=== PATIENT | female | born 1995 | race Caucasian/White ===

== ENCOUNTER 2021-04-17 10:06 | Day surgery (SDC) | payer OTHER, SELFPAY ==
[~2021-04-17] VITALS: Ht 157.5 cm; Wt 43.5 kg
[2021-04-17] MEDS ORDERED: BUPIVACAINE-MPF 0.25% 30 ML VIAL INJ ONE (11:17)
[2021-04-17] MEDS ORDERED: KETOROLAC 30 MG/ML VIAL ONE (13:00)
[2021-04-17] MEDS ORDERED: DEXAMETHASONE 4 MG/ML VIAL ONE (13:00)
[2021-04-17] MEDS ORDERED: PROPOFOL 200 MG/20 ML VIAL IV ONE (13:00)
[2021-04-17] MEDS ORDERED: MIDAZOLAM 2 MG/2 ML VIAL ONE (13:00)
[2021-04-17] MEDS ORDERED: SEVOFLURANE 250 ML BTL INH ONE (13:00)
[2021-04-17] MEDS ORDERED: fentaNYL citrate 0.05 MG/ML VIAL ONE (13:00)
[2021-04-17] MEDS ORDERED: HYDROmorphone 1 MG/ML AMP IVP PRN ×2 (13:25→18:00)
[2021-04-17] MEDS ORDERED: ONDANSETRON 4 MG/2 ML VIAL IVP PRN (13:25)
[2021-04-17] MEDS ORDERED: LACTATED RINGERS 1,000 ML IV SCH (13:25)
[2021-04-17] MEDS ORDERED: MEPERIDINE 25 MG/ML SYR IVP PRN (13:25)
[2021-04-17] MEDS ORDERED: HYDROcodone/APAP 5/325 MG 1 TAB TAB PO PRN (13:50)
[2021-04-17] MEDS ORDERED: MORPHINE SULFATE 2 MG/ML SYR IVP PRN (18:00)
[2021-04-17] MEDS ORDERED: MORPHINE SULFATE 4 MG/ML SYR IV PRN (18:00)
[2021-04-17] MEDS ORDERED: ONDANSETRON 4 MG/2 ML VIAL IV PRN (18:00)
== END 2021-04-17 15:00 | disposition home or self-care (01) ==
LOC: MDS 10:06 → MMU 10:06 → MDS 15:00
PROVIDERS: ATTEND Surgery
DX: D24.2 Benign neoplasm of left breast (principal); Z20.822 Contact with and (suspected) exposure to COVID-19; Z79.899 Other long term (current) drug therapy
CPT/HCPCS: 19120; 71045; J0690; J1100; J1885; J2250; J2704; J3010; J3490; J7060; U0003